=== PATIENT | female | born 1985 | race African-American/Black ===

== ENCOUNTER 2018-06-17 20:44 | Emergency (ER) | payer MEDICAID ==
[~2018-06-17] VITALS: Ht 170.2 cm; Wt 86.2 kg
[2018-06-17 20:55] VITALS: BP 121/83
--- NOTE | 2018-06-17 21:11 | Emergency Room Report ---
History of Present Illness General Chief Complaint: Chest Pain Source: Patient Present Illness HPI Is a 32-year-old female with a history of HIV, schizophrenia/bipolar. She said her CD4 count is good and a viral load is low. Has been noncompliant with HIV medication. He presents with chief complaint of chest pain/cough. Onset for last 3 days. Subjective fever. Coughing is productive of greenish sputum. HEENT is diffuse. Worse with inspiration. Better with rest. No radiation. Pain is 7 out of 10. Call 911 and EMS gave her aspirin and nitroglycerin without much relief. Denies any other complaint. No radiation the pain. No diaphoresis. No short of breath. Similar symptom in the past. Allergies: Coded Allergies: No Known Allergies (Unverified , 06/17/18) Patient History Past Medical History: see triage record, old chart reviewed, psych hx, HIV Past Surgical History: none Pertinent Family History: none Social History: Denies: smoking Now: No Immunizations: other Reviewed Nursing Documentation: PMH: Agreed; PSxH: Agreed Review of Systems Eye: Denies: eye pain, blurred vision ENT: Denies: ear pain, nose congestion, throat swelling Respiratory: Reports: cough, shortness of breath, sputum Cardiovascular: Reports: chest pain; Denies: palpitations Gastrointestinal: Denies: abdominal pain, diarrhea, nausea, vomiting Musculoskeletal: Denies: back pain, joint pain Skin: Denies: rash Neurological: Denies: headache, numbness Endocrine: Denies: increased thirst, increased urine Hematologic/Lymphatic: Denies: easy bruising All Other Systems: negative except mentioned in HPI Physical Exam Vital Signs Date Time Temp Pulse Resp B/P (MAP) Pulse Ox O2 Delivery O2 Flow Rate FiO2 06/17/18 20:40 98.7 87 18 121/83 98 Room Air 98.8 vitals normal Sp02 EP Interpretation: reviewed, normal General Appearance: well appearing, no apparent distress, alert Head: normocephalic, atraumatic Eyes: bilateral eye PERRL, bilateral eye EOMI ENT: hearing grossly normal, normal pharynx Neck: full range of motion, supple, no meningismus Respiratory: chest non-tender, normal breath sounds, rhonchi Cardiovascular #1: regular rate, rhythm, no murmur Gastrointestinal: normal bowel sounds, non tender, no mass, no organomegaly, no bruit, non-distended Musculoskeletal: back normal, gait/station normal, normal range of motion Psychiatric: mood/affect normal Skin: warm/dry Medical Decision Making Diagnostic Impression: Primary Impression: Chest pain Qualified Codes: R07.9 - Chest pain, unspecified Additional Impression: Atypical pneumonia ER Course Patient presents with atypical, noncardiac chest pain. Because of her history of HIV immunosuppression, we'll put on antibiotics and she has atypical pneumonia. No evidence of ACS, PE, dissection to name a few. EKG Diagnostic Results Rate: normal Rhythm: NSR ST Segments: no acute changes Rhythm Strip Diag. Results Rhythm Strip Time: 21:10 Rate: 95 Rhythm: NSR, no PVC's, no ectopy Last Vital Signs Date Time Temp Pulse Resp B/P (MAP) Pulse Ox O2 Delivery O2 Flow Rate FiO2 06/17/18 20:40 98.7 87 18 121/83 98 Room Air 98.8 Status: improved Disposition: HOME, SELF-CARE Condition: Stable Scripts Azithromycin* (ZITHROMAX*) 250 Mg Tablet 250 MG ORAL DAILY, #6 TAB 0 Refills Take two tables once daily for 1 day, then one tablet once daily for 4 days. Prov: Shaan Ann MD 06/17/18 Ibuprofen* (MOTRIN*) 600 Mg Tablet 600 MG ORAL THREE TIMES A DAY, #30 TAB 0 Refills Prov: Shaan Ann MD 06/17/18 Additional Instructions: Follow-up with your doctor in 5-7 days for recheck. Return if symptom worsen. Shaan Ann MD Jun 17, 2018 21:11
[2018-06-17] MEDS ORDERED: IBUPROFEN600 MG ORAL (21:27)
[2018-06-17] MEDS ORDERED: ZITHROMAX250 MG ORAL (21:27)
--- NOTE | 2018-06-17 21:31 | Emergency Room Report ---
Physical Exam Vital Signs Date Time Temp Pulse Resp B/P (MAP) Pulse Ox O2 Delivery O2 Flow Rate FiO2 06/17/18 20:40 98.7 87 18 121/83 98 Room Air 98.8 Medical Decision Making Diagnostic Impression: Primary Impression: Chest pain Qualified Codes: R07.9 - Chest pain, unspecified Additional Impression: Atypical pneumonia Chest X-Ray Diagnostic Results Chest X-Ray Diagnostic Results : Chest X-Ray Ordered: Yes # of Views/Limited/Complete: 1 View Indication: Chest Pain EP Interpretation: Yes Interpretation: no effusion, no pneumothorax, no acute cardiopulmonary disease, other - Increased bilateral interstitial infiltrates Impression: Other - b/l interstitial infiltrates Electronically Signed by: Shaan Ann MD Last Vital Signs Date Time Temp Pulse Resp B/P (MAP) Pulse Ox O2 Delivery O2 Flow Rate FiO2 06/17/18 21:08 98.7 06/17/18 20:55 85 18 121/83 98 Room Air Status: improved Disposition: HOME, SELF-CARE Condition: Stable Scripts Azithromycin* (ZITHROMAX*) 250 Mg Tablet 250 MG ORAL DAILY, #6 TAB 0 Refills Take two tables once daily for 1 day, then one tablet once daily for 4 days. Prov: Shaan Ann MD 06/17/18 Ibuprofen* (MOTRIN*) 600 Mg Tablet 600 MG ORAL THREE TIMES A DAY, #30 TAB 0 Refills Prov: Shaan Ann MD 06/17/18 Patient Instructions: Community-Acquired Pneumonia, Adult, [id number] Additional Instructions: Follow-up with your doctor in 5-7 days for recheck. Return if symptom worsen. Shaan Ann MD Jun 17, 2018 21:31
[2018-06-17 21:34] VITALS: BP 109/64
--- NOTE | 2018-06-17 21:49 | Diagnostic Imaging Report ---
EXAM: XR Chest, 1 View CLINICAL HISTORY: CP TECHNIQUE: Frontal view of the chest. COMPARISON: No relevant prior studies available. FINDINGS: Lungs: Unremarkable. No consolidation. Pleural space: Unremarkable. No pneumothorax. Heart: Unremarkable. No cardiomegaly. Mediastinum: Unremarkable. Bones/joints: Unremarkable. IMPRESSION: No radiographic evidence of acute cardiopulmonary disease.
== END 2018-06-17 21:32 | disposition home or self-care (01) ==
LOC: EDBD 20:44 → EMR 21:15
DX: J18.9 Pneumonia, unspecified organism (principal)
CPT/HCPCS: 71045; 93005; 99283

== ENCOUNTER 2018-07-13 08:04 | Inpatient (IN) | payer MEDICAID ==
[~2018-07-13] VITALS: Ht 170.2 cm; Wt 104.3 kg
[2018-07-13] VITALS (7 sets, daily range): BP systolic 102–143; BP diastolic 53–93
[~2018-07-13 08:04] MED LIST: IBUPROFEN600 MG ORAL; ZITHROMAX250 MG ORAL
[2018-07-13] MEDS ORDERED: UNOBMED (08:14)
[2018-07-13] MEDS ORDERED: Albuterol ud Inhalation HHN ONE (08:30)
[2018-07-13] MEDS ORDERED: Ipratropium 0.02% Inh Soln 2.5ml UD HHN ONE (08:30)
[2018-07-13] MEDS ORDERED: Azithromycin 250mg tab PO ONE (08:30)
[2018-07-13] MEDS ORDERED: BENADRYL A12.5 MG/5 ORAL (08:32)
[2018-07-13] MEDS ORDERED: CELEXA20 MG ORAL (08:32)
[2018-07-13] MEDS ORDERED: ALBUTEROL2.5 MG/3 M INH (08:32)
[2018-07-13] MEDS ORDERED: LISINOPRIL20 MG ORAL (08:32)
[2018-07-13] MEDS ORDERED: QUETIAPINE FUM200 MG ORAL (08:32)
[2018-07-13] MEDS ORDERED: TYLENOL WITH C1 EACH ORAL (08:32)
[2018-07-13 08:48] LABS: BASOPHILS % (AUTO) 1.9 % (0.0-2.0); EOSINOPHILS % (AUTO) 3.6 % (0.0-3.0); HEMOGLOBIN 11.4 G/DL (12.0-16.0); LYMPHOCYTES % (AUTO) 43.2 % (20.0-45.0); MEAN CORPUSCULAR VOLUME 86 FL (80-99); MONOCYTES % (AUTO) 11.1 % (1.0-10.0); NEUTROPHILS % (AUTO) 40.2 % (45.0-75.0); PLATELET COUNT 298 K/UL (150-450); RED BLOOD COUNT 4.21 M/UL (4.20-5.40); RED CELL DISTRIBUTION WIDTH 15.1 % (11.6-14.8)
[2018-07-13 09:00] LABS: ANION GAP 2 mmol/L (5-15); BLOOD UREA NITROGEN 14 mg/dL (7-18); CALCIUM 8.6 MG/DL (8.5-10.1); CARBON DIOXIDE 32 MMOL/L (21-32); CHLORIDE 107 MMOL/L (98-107); CREATININE 1.1 MG/DL (0.55-1.30); SODIUM 141 MMOL/L (136-145)
[2018-07-13 09:11] LABS: ALANINE AMINOTRANSFERASE 23 U/L (12-78); ALBUMIN 2.7 G/DL (3.4-5.0); ALBUMIN/GLOBULIN RATIO 0.6 (1.0-2.7); ALKALINE PHOSPHATASE 86 U/L (46-116); ASPARTATE AMINO TRANSFERASE 19 U/L (15-37); BILIRUBIN,TOTAL 0.2 MG/DL (0.2-1.0); CREATINE KINASE 250 U/L (26-308)
--- NOTE | 2018-07-13 10:01 | Diagnostic Imaging Report ---
Indication: Shortness of breath Technique: One view of the chest Comparison: 06/17/2018 Findings: Body habitus limits evaluation. The lungs and pleural spaces are clear. The heart is borderline enlarged. No significant change Impression: No acute process Borderline cardiomegaly
[2018-07-13 11:23] LABS: APPEARANCE,URINE CLEAR; BILIRUBIN, URINE NEGATIVE (NEGATIVE); COLOR,URINE PALE YELLOW; GLUCOSE, URINE (UA) NEGATIVE (NEGATIVE); KETONES,URINE NEGATIVE (NEGATIVE); LEUKOCYTE ESTERASE ,URINE NEGATIVE (NEGATIVE); NITRITE,URINE NEGATIVE (NEGATIVE); PH,URINE 7 (4.5-8.0); PROTEIN,URINE 2+ (NEGATIVE); UROBILINOGEN,URINE NORMAL MG/DL (0.0-1.0)
--- NOTE | 2018-07-13 12:01 | Emergency Room Report ---
History of Present Illness General Chief Complaint: Dyspnea/Respdistress Source: Patient, EMS Present Illness HPI This patient complains of shortness of breath. She states that this has been going on for a few months. She states she's also had chest pain and left arm pain. She has had some cough. She states she primarily feels short of breath and has had pain in her chest. She denies nausea or vomiting. She denies abdominal pain. She has no other complaints. Allergies: Coded Allergies: No Known Allergies (Unverified , 06/17/18) Patient History Past Medical History: see triage record, HTN, asthma, HIV Social History: Denies: smoking, alcohol use, drug use Last Menstrual Period: UNK Reviewed Nursing Documentation: PMH: Agreed; PSxH: Agreed Nursing Documentation-PMH Past Medical History: No History, Except For Hx Hypertension: Yes Hx Asthma: Yes History Of Psychiatric Problem: Yes - DEPRESSION, BIPOLAR Review of Systems All Other Systems: negative except mentioned in HPI Physical Exam Vital Signs Date Time Temp Pulse Resp B/P (MAP) Pulse Ox O2 Delivery O2 Flow Rate FiO2 07/13/18 08:09 75 18 143/93 98 Room Air 07/13/18 08:40 21 07/13/18 08:40 97.6 Sp02 EP Interpretation: reviewed, normal General Appearance: no apparent distress, alert, GCS 15, non-toxic, obese Head: normocephalic, atraumatic Eyes: bilateral eye normal inspection, bilateral eye PERRL ENT: hearing grossly normal, normal pharynx, no angioedema, normal voice Neck: full range of motion, supple/symm/no masses Respiratory: chest non-tender, lungs clear, normal breath sounds, no respiratory distress, no retraction, no accessory muscle use, speaking full sentences Cardiovascular #1: regular rate, rhythm, no edema Gastrointestinal: normal bowel sounds, non tender, soft, non-distended, no guarding, no rebound Rectal: deferred Musculoskeletal: back normal, gait/station normal, normal range of motion, non- tender Neurologic: alert, oriented x3, responsive, motor strength/tone normal, sensory intact, speech normal Psychiatric: judgement/insight normal, memory normal, mood/affect normal, no suicidal/homicidal ideation Skin: normal color, no rash, warm/dry, well hydrated Medical Decision Making Diagnostic Impression: Primary Impression: Chest pain Additional Impressions: Asthma exacerbation Cardiomegaly Possible pericarditis ER Course This patient is complicated. She has a history of HIV. She has findings on EKG with diffuse ST segment elevations that are less than 2 boxes but possibly coming down from a pericarditis. Also, the patient's chest x-ray shows cardiomegaly. She does not have a history of heart disease. I felt that given this patient's chest pain, asthma exacerbation, findings on EKG that may be evidence of pericarditis and findings on chest x-ray consistent with cardiomegaly that this patient should be admitted for further evaluation by cardiology and internal medicine. Therefore, this patient is admitted for further evaluation and treatment. Laboratory Tests Test 07/13/18 08:35 07/13/18 11:15 White Blood Count 4.0 K/UL (4.8-10.8) L Red Blood Count 4.21 M/UL (4.20-5.40) Hemoglobin 11.4 G/DL (12.0-16.0) L Hematocrit 36.0 % (37.0-47.0) L Mean Corpuscular Volume 86 FL (80-99) Mean Corpuscular Hemoglobin 27.0 PG (27.0-31.0) Mean Corpuscular Hemoglobin Concent 31.6 G/DL (32.0-36.0) L Red Cell Distribution Width 15.1 % (11.6-14.8) H Platelet Count 298 K/UL (150-450) Mean Platelet Volume 5.4 FL (6.5-10.1) L Neutrophils (%) (Auto) 40.2 % (45.0-75.0) L Lymphocytes (%) (Auto) 43.2 % (20.0-45.0) Monocytes (%) (Auto) 11.1 % (1.0-10.0) H Eosinophils (%) (Auto) 3.6 % (0.0-3.0) H Basophils (%) (Auto) 1.9 % (0.0-2.0) Sodium Level 141 MMOL/L (136-145) Potassium Level 4.0 MMOL/L (3.5-5.1) Chloride Level 107 MMOL/L (98-107) Carbon Dioxide Level 32 MMOL/L (21-32) Anion Gap 2 mmol/L (5-15) L Blood Urea Nitrogen 14 mg/dL (7-18) Creatinine 1.1 MG/DL (0.55-1.30) Estimate Glomerular Filtration Rate > 60 mL/min (>60) Glucose Level 87 MG/DL (74-106) Calcium Level 8.6 MG/DL (8.5-10.1) Total Bilirubin 0.2 MG/DL (0.2-1.0) Aspartate Amino Transferase (AST) 19 U/L (15-37) Alanine Aminotransferase (ALT) 23 U/L (12-78) Alkaline Phosphatase 86 U/L (46-116) Total Creatine Kinase 250 U/L (26-308) Troponin I 0.000 ng/mL (0.000-0.056) Pro-B-Type Natriuretic Peptide 74 pg/mL (0-125) Total Protein 7.1 G/DL (6.4-8.2) Albumin 2.7 G/DL (3.4-5.0) L Globulin 4.4 g/dL Albumin/Globulin Ratio 0.6 (1.0-2.7) L Urine Color Pale yellow Urine Appearance Clear Urine pH 7 (4.5-8.0) Urine Specific [place] 1.010 (1.005-1.035) Urine Protein 2+ (NEGATIVE) H Urine Glucose (UA) Negative (NEGATIVE) Urine Ketones Negative (NEGATIVE) Urine Blood Negative (NEGATIVE) Urine Nitrite Negative (NEGATIVE) Urine Bilirubin Negative (NEGATIVE) Urine Urobilinogen Normal MG/DL (0.0-1.0) Urine Leukocyte Esterase Negative (NEGATIVE) Urine RBC 0 /HPF (0 - 2) Urine WBC 0-2 /HPF (0 - 2) Urine Squamous Epithelial Cells Occasional /LPF Urine Bacteria Occasional /HPF (NONE) EKG Diagnostic Results Rhythm: NSR ST Segments: other - Diffuse ST segment elevations <2 small boxes. Prolonged Qtc Rhythm Strip Diag. Results EP Interpretation: yes Rate: 80's Rhythm: NSR, no PVC's, no ectopy Chest X-Ray Diagnostic Results Chest X-Ray Diagnostic Results : Chest X-Ray Ordered: Yes # of Views/Limited/Complete: 1 View Indication: Chest Pain EP Interpretation: Yes Interpretation: no consolidation, no effusion, no pneumothorax, other - Cardiomegaly Impression: Other - See above. Last Vital Signs Date Time Temp Pulse Resp B/P (MAP) Pulse Ox O2 Delivery O2 Flow Rate FiO2 07/13/18 11:00 82 18 104/53 100 Room Air 07/13/18 09:52 97.6 21 Disposition: ADMITTED INPATIENT Condition: Serious Referrals: NOT CHOSEN IPA/,REFERRING (PCP) Mel Portillo DO Jul 13, 2018 12:01
[2018-07-13] MEDS ORDERED: Ketorolac 30mg Inj IV PRN (13:30)
[2018-07-13] MEDS ORDERED: Morphine Sulfate 2mg/ml Inj IVP PRN (13:30)
[2018-07-13] MEDS ORDERED: dilTIAZem HCl 25mg/5ml Inj IV PRN (13:30)
[2018-07-13] MEDS ORDERED: Miralax 17gm pkt ORAL PRN (13:30)
[2018-07-13] MEDS ORDERED: Enalaprilat 2.5mg/2ml Inj IV PRN (13:30)
[2018-07-13] MEDS ORDERED: Albuterol/Ipratropium 3ml neb HHN PRN (13:30)
[2018-07-13] MEDS ORDERED: Nitroglycerin Subl 0.4mg tab SL PRN (13:30)
[2018-07-13] MEDS ORDERED: Aspirin Baby 81mg ORAL SCH (15:00)
--- NOTE | 2018-07-13 18:04 | History & Physical ---
History and Physical History & Physicial Dictated for Int Med-Dr Epps no, [id number]. Gallo León MD Jul 13, 2018 18:04
--- NOTE | 2018-07-13 18:27 | Cardiology Progress Note ---
Assessment/Plan Assessment/Plan doubt cardiac pain trop in am if ngeg attempt stress echo in am as she seems to be goign to several different ers [id number] Objective Last 24 Hour Vital Signs Date Time Temp Pulse Resp B/P (MAP) Pulse Ox O2 Delivery O2 Flow Rate FiO2 07/13/18 16:00 98.0 80 20 117/65 (82) 92 07/13/18 16:00 96 07/13/18 15:45 125/76 07/13/18 14:00 Room Air 07/13/18 13:50 98.2 95 20 113/66 (82) 98 07/13/18 13:48 97.6 93 19 102/55 100 Room Air 21 91 07/13/18 13:47 91 07/13/18 13:25 91 19 102/55 100 Room Air 07/13/18 11:00 82 18 104/53 100 Room Air 07/13/18 09:52 97.6 93 22 122/65 100 Room Air 21 07/13/18 09:09 98 18 99 Room Air 21 07/13/18 09:06 89 18 Room Air 21 07/13/18 08:46 89 18 100 Room Air 07/13/18 08:45 21 07/13/18 08:40 97.6 98 18 143/93 98 Room Air 07/13/18 08:40 89 18 Room Air 21 07/13/18 08:09 75 18 143/93 98 Room Air Laboratory Tests Test 07/13/18 08:35 07/13/18 11:15 White Blood Count 4.0 K/UL (4.8-10.8) L Red Blood Count 4.21 M/UL (4.20-5.40) Hemoglobin 11.4 G/DL (12.0-16.0) L Hematocrit 36.0 % (37.0-47.0) L Mean Corpuscular Volume 86 FL (80-99) Mean Corpuscular Hemoglobin 27.0 PG (27.0-31.0) Mean Corpuscular Hemoglobin Concent 31.6 G/DL (32.0-36.0) L Red Cell Distribution Width 15.1 % (11.6-14.8) H Platelet Count 298 K/UL (150-450) Mean Platelet Volume 5.4 FL (6.5-10.1) L Neutrophils (%) (Auto) 40.2 % (45.0-75.0) L Lymphocytes (%) (Auto) 43.2 % (20.0-45.0) Monocytes (%) (Auto) 11.1 % (1.0-10.0) H Eosinophils (%) (Auto) 3.6 % (0.0-3.0) H Basophils (%) (Auto) 1.9 % (0.0-2.0) Sodium Level 141 MMOL/L (136-145) Potassium Level 4.0 MMOL/L (3.5-5.1) Chloride Level 107 MMOL/L (98-107) Carbon Dioxide Level 32 MMOL/L (21-32) Anion Gap 2 mmol/L (5-15) L Blood Urea Nitrogen 14 mg/dL (7-18) Creatinine 1.1 MG/DL (0.55-1.30) Estimat Glomerular Filtration Rate > 60 mL/min (>60) Glucose Level 87 MG/DL (74-106) Calcium Level 8.6 MG/DL (8.5-10.1) Total Bilirubin 0.2 MG/DL (0.2-1.0) Aspartate Amino Transf (AST/SGOT) 19 U/L (15-37) Alanine Aminotransferase (ALT/SGPT) 23 U/L (12-78) Alkaline Phosphatase 86 U/L (46-116) Total Creatine Kinase 250 U/L (26-308) Troponin I 0.000 ng/mL (0.000-0.056) Pro-B-Type Natriuretic Peptide 74 pg/mL (0-125) Total Protein 7.1 G/DL (6.4-8.2) Albumin 2.7 G/DL (3.4-5.0) L Globulin 4.4 g/dL Albumin/Globulin Ratio 0.6 (1.0-2.7) L Urine Color Pale yellow Urine Appearance Clear Urine pH 7 (4.5-8.0) Urine Specific [place] 1.010 (1.005-1.035) Urine Protein 2+ (NEGATIVE) H Urine Glucose (UA) Negative (NEGATIVE) Urine Ketones Negative (NEGATIVE) Urine Blood Negative (NEGATIVE) Urine Nitrite Negative (NEGATIVE) Urine Bilirubin Negative (NEGATIVE) Urine Urobilinogen Normal MG/DL (0.0-1.0) Urine Leukocyte Esterase Negative (NEGATIVE) Urine RBC 0 /HPF (0 - 2) Urine WBC 0-2 /HPF (0 - 2) Urine Squamous Epithelial Cells Occasional /LPF Urine Bacteria Occasional /HPF (NONE) Gold Darden MD Jul 13, 2018 18:27
[2018-07-13] MEDS: Heparin 5000 units/ml inj SUBQ SCH (20:54)
[2018-07-13] MEDS ORDERED: QUEtiapine 200mg tab ORAL SCH (21:00)
--- NOTE | 2018-07-13 21:15 | Consultation ---
DATE OF CONSULTATION: 07/13/2018 ADDENDUM ASSESSMENT AND PLAN: 1. Atypical chest pain. 2. Shortness of breath. 3. HIV history. 4. Obesity. PLAN: This patient was seen in cardiac consultation. The patient has no signs or symptoms of coronary syndrome. Her electrocardiogram is unremarkable. Her chest pain is very atypical. The echocardiogram was personally reviewed, really wall motion appears to be normal. No significant wall motion abnormalities noted. Her cardiac enzymes are negative. She should be discharged with followup as outpatient with her primary care physician. She has had this shortness of breath discomfort for some time now more than 3 to 4 weeks yet. First set of cardiac enzymes are negative and probably her second set will be actually negative as well. She should really be discharged home because of insurance reasons. I will proceed with a exercise stress test, just the treadmill and hopefully, she could go home afterwards. If she is not able to exercise on the treadmill then she may be able to just follow up as outpatient for further testing through her primary care doctor's office. Gold Darden M.D. DR: FREDERIC JOB#: [id number] CC:
--- NOTE | 2018-07-13 23:15 | Consultation ---
DATE OF CONSULTATION: 07/13/2018 NOTE: INCOMPLETE DICTATION CARDIOLOGY CONSULTATION CONSULTING PHYSICIAN: Gold Darden M.D. REFERRING PHYSICIAN: 1. Tico Epps M.D. 2. Omega Rosa M.D. REASON FOR REFERRAL: Chest pain and shortness of breath. HISTORY OF PRESENT ILLNESS: This is a 32-year-old female, who apparently presented to the emergency room here at [facility] because of shortness of breath. She seems it is just going on for a few months and states she has also had some pain and discomfort in her left side of her chest and this has been going on for several months. She has dyspnea on exertion. She has shortness of breath on breath. She has shortness of breath when she lies down. She has shortness of breath that wakes her up. She has shortness of breath when she stands up. She has dizziness when she stands up and she has occasional palpitations. PAST MEDICAL HISTORY: Positive for high blood pressure. Denies any diabetes. No high cholesterol. No heart attack. No cancer. No stroke. No hepatitis or tuberculosis. No asthma or emphysema. No ulcers. No kidney problems, liver problems, thyroid problems, anemia, or arthritis. She does have HIV. No history of blood clots or other medical problems. She is not allergic to any medications. SOCIAL HISTORY: She smokes. Does rarely drink alcoholic beverages, and she only used drugs once. REVIEW OF SYSTEMS: GASTROINTESTINAL: She has had nausea and diarrhea. GENITOURINARY: Denies. PULMONARY: Positive cough, not able to produce any sputum. CONSTITUTIONAL: Negative. NEUROLOGIC: Negative. PHYSICAL EXAMINATION: GENERAL: Shows to be a young female, in no respiratory distress. Lying flat LUNGS: Clear to auscultation and percussion. CARDIAC: S1 is normal. S2 is normal. Regular rate and rhythm. No heaves, thrills, or gallops noted. ABDOMEN: Soft and nontender. Positive bowel sounds. EXTREMITIES: There is no edema, clubbing, or cyanosis. NEUROLOGICAL: She is awake, alert, responsive, in no apparent distress. LABORATORY AND DIAGNOSTIC DATA: White count of 4, hemoglobin 11.4, and platelet count 298,000. Sodium is 141, potassium 4.0, chloride 107, bicarbonate 32, BUN 14, creatinine 1.1, glucose of 87, and calcium is 8.7. ProBNP is 74. Albumin is 2.7. Urinalysis is fairly unremarkable. She did have x-ray of her chest and this shows borderline cardiomegaly, otherwise no acute processes noted. Gold Darden M.D. DR: GUILLE JOB#: [id number] CC:
--- NOTE | 2018-07-13 23:45 | History and Physical Report ---
DATE OF ADMISSION: 07/13/2018 CHIEF COMPLAINT: The patient is a 32-year-old female who presents with chief complaint of chest pain. HISTORY OF PRESENT ILLNESS: It began two weeks prior to admission. The patient began to experience chest pain. The patient states the chest pain is constant. The patient states that it is left-sided. There is no radiation to the jaw or to the shoulder. The patient also complains of shortness of breath associated with chest pain. The patient was evaluated at [facility] Emergency Room on June 30, 2018. The patient was discharged home. The patient then presented to [facility] on July 13, 2018. The patient is admitted with chest pain to rule out acute coronary syndrome. REVIEW OF SYSTEMS: CONSTITUTIONAL: The patient denies weight loss or weight gain. The patient denies fevers or chills. HEENT: The patient denies ear or throat pain. The patient denies headache. CARDIOVASCULAR: The patient complains of chest pain as above. The patient has palpitations. CHEST: The patient denies wheeze or shortness of breath. ABDOMEN: The patient denies nausea, vomiting, diarrhea, or constipation. GENITOURINARY: The patient denies dysuria or increased frequency of urination. NEUROMUSCULAR: The patient denies seizures or generalized weakness. PAST MEDICAL HISTORY: Significant for, 1. HIV, diagnosed at age 11. 2. Hypertension. 3. Bipolar depression. 4. Paranoid schizophrenia. PAST SURGICAL HISTORY: Significant for section x2. CURRENT MEDICATIONS: 1. Prezista 800 mg p.o. daily. 2. Albuterol nebulized q.4 h. p.r.n. 3. Citalopram 20 mg p.o. daily. 4. Lisinopril 20 mg p.o. daily. 5. Seroquel 200 mg p.o. daily. ALLERGIES: No known drug allergies. SOCIAL HISTORY: The patient is and is apparently homeless. The patient denies tobacco use. The patient admits to rare alcohol use. PHYSICAL EXAMINATION: VITAL SIGNS: Temperature 97.6, respirations 19, pulse 91, and blood pressure 102/55. GENERAL: The patient is a well-developed and well-nourished slightly obese female, in no apparent distress. HEENT: Eyes, pupils are equal and responsive to light and accommodation. Extraocular movements are intact. NECK: Supple. No lymphadenopathy. CHEST: Lungs are clear to auscultation bilaterally without wheezes or rales. CARDIOVASCULAR: Regular rhythm and rate. S1 and S2 are normal without murmurs, rubs, or gallops. ABDOMEN: Soft, nontender, and nondistended. Positive bowel sounds. No evidence of hepatosplenomegaly. Currently, no rebound or guarding noted. EXTREMITIES: Negative for clubbing, cyanosis, or edema. RECTAL/GENITAL: Refused. NEUROLOGIC: Cranial nerves II through XII are grossly intact without focal deficits. Motor strength is 5/5 bilaterally. Deep tendon reflexes are 2+ plantar. LABORATORY AND DIAGNOSTIC DATA: WBC 4.0, hemoglobin 11.4, hematocrit 36.0, and platelets 298,000. Sodium 141, potassium 4.0, chloride 107, CO2 32, BUN 14, creatinine 1.1, and glucose 87. Troponin 0.0. Urinalysis showed 2+ protein, otherwise within normal limits. A chest x-ray revealed no acute disease with possible cardiomegaly. An EKG demonstrated normal sinus rhythm at approximately 85 beats per minute. There are no acute ST changes or Q-waves noted. ASSESSMENT: This is a 32-year-old female. 1. Chest pain. 2. Shortness of breath. 3. HIV. 4. Hypertension. 5. Bipolar depression. TREATMENT: 1. Chest pain. A Cardiology consultation has been obtained with Dr. Gold Darden. We will follow recommendation of Cardiology. Serial troponin levels will be performed. 2. Shortness of breath. This may be associated with chest pain as above. 3. HIV. Continue Prezista as above. An Infectious Disease consultation has been obtained with Dr. Brennan. 4. Hypertension. Continue lisinopril as above. 5. Bipolar depression. Continue Seroquel and citalopram as above. A Psychiatric consultation has been obtained with Dr. Castellon. Gallo León M.D. DR: EAN JOB#: [id number] CC:
[2018-07-14] VITALS: BP 122/70
[2018-07-14 04:00] VITALS: BP 134/68
[2018-07-14 06:39] LABS: BASOPHILS % (AUTO) 0.9 % (0.0-2.0); EOSINOPHILS % (AUTO) 3.6 % (0.0-3.0); HEMATOCRIT 32.7 % (37.0-47.0); HEMOGLOBIN 10.8 G/DL (12.0-16.0); LYMPHOCYTES % (AUTO) 31.7 % (20.0-45.0); MEAN CORPUSCULAR VOLUME 86 FL (80-99); MONOCYTES % (AUTO) 10.1 % (1.0-10.0); NEUTROPHILS % (AUTO) 53.8 % (45.0-75.0); PLATELET COUNT 289 K/UL (150-450); RED BLOOD COUNT 3.82 M/UL (4.20-5.40); RED CELL DISTRIBUTION WIDTH 14.9 % (11.6-14.8); WHITE BLOOD COUNT 3.7 K/UL (4.8-10.8)
[2018-07-14 07:03] LABS: INR 0.9 (0.9-1.1)
[2018-07-14 07:32] LABS: CHOLESTEROL 149 MG/DL (< 200); HDL CHOLESTEROL 59 MG/DL (40-60); TRIGLYCERIDES 61 MG/DL (30-150)
[2018-07-14 08:00] VITALS: BP 130/68
[2018-07-14] MEDS ORDERED: Aspirin Baby 81mg ORAL SCH (09:00)
[2018-07-14] MEDS ORDERED: Lisinopril 20mg tab ORAL SCH (09:00)
[2018-07-14] MEDS ORDERED: QUEtiapine 200mg tab ORAL SCH (09:00)
[2018-07-14] MEDS: Heparin 5000 units/ml inj SUBQ SCH (09:14)
--- NOTE | 2018-07-14 10:59 | Consultation ---
History of Present Illness General Date patient seen: Jul 14, 2018 Chief Complaint: Dyspnea/Respdistress Present Illness HPI 32 year old with psychiatric history, Asthma, homeless, presented to ER with CC of shortness of breath and vague chest pain. pt is admitted to telemetry for further work up. Allergies: Coded Allergies: No Known Allergies (Unverified , 06/17/18) Medication History Scheduled Azithromycin* (Zithromax*), 250 MG ORAL DAILY Citalopram Hydrobromide* (Celexa*), 20 MG ORAL DAILY, (Reported) Ibuprofen* (Motrin*), 600 MG ORAL THREE TIMES A DAY Lisinopril (Lisinopril*), 20 MG ORAL DAILY, (Reported) Quetiapine Fumarate* (Seroquel*), 200 MG ORAL DAILY, (Reported) Scheduled PRN Acetaminophen With Codeine 300MG/30MG (T#3)* (Tylenol With Codeine #3 Tablet*), 1 TAB ORAL Q4H PRN for For Pain, (Reported) Albuterol Sulfate* (Albuterol Sulfate Hhn*), 3 ML INH Q4H PRN for Shortness of Breath, (Reported) Diphenhydramine Hcl* (Benadryl Allergy*), 12.5 MG ORAL Q6H PRN for Itching, ( Reported) Miscellaneous Medications Unable to Obtain Medications (Unable To Obtain Meds), (Reported) Patient History Healthcare decision maker Resuscitation status Full Code Advanced Directive on File Past Medical/Surgical History Past Medical/Surgical History: (1) History of asthma (2) HIV (human immunodeficiency virus infection) Review of Systems All Other Systems: negative except mentioned in HPI Physical Exam General Appearance: WD/WN Lines, tubes and drains: peripheral HEENT: normocephalic, atraumatic Neck: non-tender, normal alignment Respiratory/Chest: chest wall non-tender Abdomen: normal bowel sounds, soft Genitourinary/Rectal: normal genital exam Last 24 Hour Vital Signs Date Time Temp Pulse Resp B/P (MAP) Pulse Ox O2 Delivery O2 Flow Rate FiO2 07/14/18 09:28 Room Air 07/14/18 09:15 130/68 07/14/18 08:00 98.3 88 19 130/68 (88) 99 07/14/18 07:35 75 16 Room Air 21 07/14/18 07:35 67 07/14/18 04:00 79 07/14/18 04:00 98.0 92 20 134/68 (90) 98 07/14/18 00:00 95 07/14/18 00:00 98.0 96 20 122/70 (87) 97 07/13/18 21:02 84 18 Room Air 21 07/13/18 21:00 Room Air 07/13/18 20:00 85 07/13/18 20:00 97.7 89 20 128/72 (90) 98 07/13/18 16:00 98.0 80 20 117/65 (82) 92 07/13/18 16:00 96 07/13/18 15:45 125/76 07/13/18 14:00 Room Air 07/13/18 13:50 98.2 95 20 113/66 (82) 98 07/13/18 13:48 97.6 93 19 102/55 100 Room Air 21 91 07/13/18 13:47 91 07/13/18 13:25 91 19 102/55 100 Room Air 07/13/18 11:00 82 18 104/53 100 Room Air Intake and Output 07/13/18 07/14/18 19:00 07:00 Intake Total 3200 ml Balance 3200 ml Intake Oral 1200 ml IV Total 2000 ml Other 0 ml # Voids 1 Laboratory Tests Test 07/13/18 11:15 07/13/18 18:30 07/14/18 06:20 Urine Color Pale yellow Urine Appearance Clear Urine pH 7 (4.5-8.0) Urine Specific [place] 1.010 (1.005-1.035) Urine Protein 2+ (NEGATIVE) H Urine Glucose (UA) Negative (NEGATIVE) Urine Ketones Negative (NEGATIVE) Urine Blood Negative (NEGATIVE) Urine Nitrite Negative (NEGATIVE) Urine Bilirubin Negative (NEGATIVE) Urine Urobilinogen Normal MG/DL (0.0-1.0) Urine Leukocyte Esterase Negative (NEGATIVE) Urine RBC 0 /HPF (0 - 2) Urine WBC 0-2 /HPF (0 - 2) Urine Squamous Epithelial Cells Occasional /LPF Urine Bacteria Occasional /HPF (NONE) White Blood Count Pending 3.7 K/UL (4.8-10.8) L Lymphocytes Pending Troponin I 0.010 ng/mL (0.000-0.056) Pending Percent CD3 Cells Pending Absolute CD3 Count Pending Percent CD4 Cells Pending Absolute CD4 Count Pending T-Lymphocyte CD4/CD8 Ratio Pending Percent CD8 Cells Pending Absolute CD8 Count Pending HIV-1 RNA (PCR) log10 Value Pending HIV-1 RNA Ultraquantitative (PCR) Pending Red Blood Count 3.82 M/UL (4.20-5.40) L Hemoglobin 10.8 G/DL (12.0-16.0) L Hematocrit 32.7 % (37.0-47.0) L Mean Corpuscular Volume 86 FL (80-99) Mean Corpuscular Hemoglobin 28.2 PG (27.0-31.0) Mean Corpuscular Hemoglobin Concent 33.0 G/DL (32.0-36.0) Red Cell Distribution Width 14.9 % (11.6-14.8) H Platelet Count 289 K/UL (150-450) Mean Platelet Volume 5.3 FL (6.5-10.1) L Neutrophils (%) (Auto) 53.8 % (45.0-75.0) Lymphocytes (%) (Auto) 31.7 % (20.0-45.0) Monocytes (%) (Auto) 10.1 % (1.0-10.0) H Eosinophils (%) (Auto) 3.6 % (0.0-3.0) H Basophils (%) (Auto) 0.9 % (0.0-2.0) Prothrombin Time 9.9 SEC (9.30-11.50) Prothromb Time International Ratio 0.9 (0.9-1.1) Activated Partial Thromboplast Time 24 SEC (23-33) C-Reactive Protein, Quantitative < 0.4 mg/dL (0.00-0.90) Triglycerides Level 61 MG/DL (30-150) Cholesterol Level 149 MG/DL (< 200) LDL Cholesterol 92 mg/dL (<100) HDL Cholesterol 59 MG/DL (40-60) Cholesterol/HDL Ratio 2.5 (3.3-4.4) L Thyroid Stimulating Hormone (TSH) 1.430 uiU/mL (0.358-3.740) Height (Feet): 5 Height (Inches): 7.00 Weight (Pounds): 230 Medications Current Medications Medications (Trade) Dose Ordered Sig/Martin Route PRN Reason Start Time Stop Time Status Last Admin Dose Admin Acetaminophen (Tylenol) 650 mg Q4H PRN ORAL FEVER (Temp > 100.5F) 07/13/18 13:30 08/12/18 13:29 Albuterol/ Ipratropium (Albuterol/ Ipratropium) 3 ml Q4H PRN HHN Shortness of Breath 07/13/18 13:30 07/18/18 13:29 Aspirin (ASA) 81 mg DAILY ORAL 07/14/18 09:00 08/13/18 08:59 07/14/18 09:14 Darunavir (Prezista) 800 mg DAILY ORAL 07/14/18 11:00 08/13/18 10:59 Diltiazem HCl (Cardizem) 10 mg Q1H PRN IV heart rate more than 120, 07/13/18 13:30 08/12/18 13:29 Enalaprilat (Vasotec) 2.5 mg Q6H PRN IV sbp more than 160 07/13/18 13:30 08/12/18 13:29 Heparin Sodium (Porcine) (Heparin 5000 units/ml) 5,000 units EVERY 12 HOURS SUBQ 07/13/18 21:00 08/12/18 20:59 07/14/18 09:14 Ketorolac Tromethamine (Toradol 30mg) 30 mg Q6H PRN IV moderate pain ( 4-6) 07/13/18 13:30 07/18/18 13:29 Lisinopril (Prinivil) 20 mg DAILY ORAL 07/14/18 09:00 08/13/18 08:59 07/14/18 09:15 Morphine Sulfate (Morphine Sulfate) 2 mg Q4H PRN IVP severe Pain (Pain Scale 7-10) 07/13/18 13:30 07/20/18 13:29 Nitroglycerin (Ntg) 0.4 mg Q5M PRN SL Prn Chest Pain 07/13/18 13:30 08/12/18 13:29 07/13/18 15:45 Ondansetron HCl (Zofran) 4 mg Q6H PRN IVP Nausea & Vomiting 07/13/18 13:30 08/12/18 13:29 Polyethylene Glycol (Miralax) 17 gm DAILYPRN PRN ORAL Constipation 07/13/18 13:30 08/12/18 13:29 Quetiapine Fumarate (SEROquel) 200 mg BEDTIME ORAL 07/13/18 21:00 08/12/18 20:59 07/13/18 20:50 Temazepam (Restoril) 15 mg HSPRN PRN ORAL Insomnia 07/13/18 13:30 07/20/18 13:29 Assessment/Plan Problem List: (1) ACS (acute coronary syndrome) ICD Codes: I24.9 - Acute ischemic heart disease, unspecified SNOMED: 336202929 (2) Cardiomegaly ICD Codes: I51.7 - Cardiomegaly SNOMED: 1498008 (3) HIV (human immunodeficiency virus infection) ICD Codes: B20 - Human immunodeficiency virus [HIV] disease SNOMED: 46763332 (4) Asthma exacerbation ICD Codes: J45.901 - Unspecified asthma with (acute) exacerbation SNOMED: 647695568 Assessment/Plan serial ekg respiratory treatment IV steroids, with rapid taper social services technician for homelessness absence Omega Rosa MD Jul 14, 2018 10:59
--- NOTE | 2018-07-14 11:19 | Consultation ---
History of Present Illness General Date patient seen: Jul 14, 2018 Chief Complaint: Dyspnea/Respdistress Present Illness HPI 32-year-old female who presents with chief complaint of chest pain the pt is delusional and has hx of schizoaffective d/o. the pt is not suicidal or homicidal Allergies: Coded Allergies: No Known Allergies (Unverified , 06/17/18) Medication History Scheduled Azithromycin* (Zithromax*), 250 MG ORAL DAILY Citalopram Hydrobromide* (Celexa*), 20 MG ORAL DAILY, (Reported) Ibuprofen* (Motrin*), 600 MG ORAL THREE TIMES A DAY Lisinopril (Lisinopril*), 20 MG ORAL DAILY, (Reported) Quetiapine Fumarate* (Seroquel*), 200 MG ORAL DAILY, (Reported) Scheduled PRN Acetaminophen With Codeine 300MG/30MG (T#3)* (Tylenol With Codeine #3 Tablet*), 1 TAB ORAL Q4H PRN for For Pain, (Reported) Albuterol Sulfate* (Albuterol Sulfate Hhn*), 3 ML INH Q4H PRN for Shortness of Breath, (Reported) Diphenhydramine Hcl* (Benadryl Allergy*), 12.5 MG ORAL Q6H PRN for Itching, ( Reported) Miscellaneous Medications Unable to Obtain Medications (Unable To Obtain Meds), (Reported) Patient History Limited by: medical condition History Provided By: Patient, Medical Record, PMD Healthcare decision maker Resuscitation status Full Code Advanced Directive on File Review of Systems Psychiatric: Reports: prior hx, hallucinations Physical Exam General Appearance: no apparent distress, alert Neurologic: oriented x 3, responsive, depressed affect Last 24 Hour Vital Signs Date Time Temp Pulse Resp B/P (MAP) Pulse Ox O2 Delivery O2 Flow Rate FiO2 07/14/18 09:28 Room Air 07/14/18 09:15 130/68 07/14/18 08:00 98.3 88 19 130/68 (88) 99 07/14/18 07:35 75 16 Room Air 21 07/14/18 07:35 67 07/14/18 04:00 79 07/14/18 04:00 98.0 92 20 134/68 (90) 98 07/14/18 00:00 95 07/14/18 00:00 98.0 96 20 122/70 (87) 97 07/13/18 21:02 84 18 Room Air 21 07/13/18 21:00 Room Air 07/13/18 20:00 85 07/13/18 20:00 97.7 89 20 128/72 (90) 98 07/13/18 16:00 98.0 80 20 117/65 (82) 92 07/13/18 16:00 96 07/13/18 15:45 125/76 07/13/18 14:00 Room Air 07/13/18 13:50 98.2 95 20 113/66 (82) 98 07/13/18 13:48 97.6 93 19 102/55 100 Room Air 21 91 07/13/18 13:47 91 07/13/18 13:25 91 19 102/55 100 Room Air Intake and Output 07/13/18 07/14/18 19:00 07:00 Intake Total 3200 ml Balance 3200 ml Intake Oral 1200 ml IV Total 2000 ml Other 0 ml # Voids 1 Laboratory Tests Test 07/13/18 18:30 07/14/18 06:20 White Blood Count Pending 3.7 K/UL (4.8-10.8) L Lymphocytes Pending Troponin I 0.010 ng/mL (0.000-0.056) Pending Percent CD3 Cells Pending Absolute CD3 Count Pending Percent CD4 Cells Pending Absolute CD4 Count Pending T-Lymphocyte CD4/CD8 Ratio Pending Percent CD8 Cells Pending Absolute CD8 Count Pending HIV-1 RNA (PCR) log10 Value Pending HIV-1 RNA Ultraquantitative (PCR) Pending Red Blood Count 3.82 M/UL (4.20-5.40) L Hemoglobin 10.8 G/DL (12.0-16.0) L Hematocrit 32.7 % (37.0-47.0) L Mean Corpuscular Volume 86 FL (80-99) Mean Corpuscular Hemoglobin 28.2 PG (27.0-31.0) Mean Corpuscular Hemoglobin Concent 33.0 G/DL (32.0-36.0) Red Cell Distribution Width 14.9 % (11.6-14.8) H Platelet Count 289 K/UL (150-450) Mean Platelet Volume 5.3 FL (6.5-10.1) L Neutrophils (%) (Auto) 53.8 % (45.0-75.0) Lymphocytes (%) (Auto) 31.7 % (20.0-45.0) Monocytes (%) (Auto) 10.1 % (1.0-10.0) H Eosinophils (%) (Auto) 3.6 % (0.0-3.0) H Basophils (%) (Auto) 0.9 % (0.0-2.0) Prothrombin Time 9.9 SEC (9.30-11.50) Prothromb Time International Ratio 0.9 (0.9-1.1) Activated Partial Thromboplast Time 24 SEC (23-33) C-Reactive Protein, Quantitative < 0.4 mg/dL (0.00-0.90) Triglycerides Level 61 MG/DL (30-150) Cholesterol Level 149 MG/DL (< 200) LDL Cholesterol 92 mg/dL (<100) HDL Cholesterol 59 MG/DL (40-60) Cholesterol/HDL Ratio 2.5 (3.3-4.4) L Thyroid Stimulating Hormone (TSH) 1.430 uiU/mL (0.358-3.740) Height (Feet): 5 Height (Inches): 7.00 Weight (Pounds): 230 Medications Current Medications Medications (Trade) Dose Ordered Sig/Martin Route PRN Reason Start Time Stop Time Status Last Admin Dose Admin Acetaminophen (Tylenol) 650 mg Q4H PRN ORAL FEVER (Temp > 100.5F) 07/13/18 13:30 08/12/18 13:29 Albuterol/ Ipratropium (Albuterol/ Ipratropium) 3 ml Q4H PRN HHN Shortness of Breath 07/13/18 13:30 07/18/18 13:29 Aspirin (ASA) 81 mg DAILY ORAL 07/14/18 09:00 08/13/18 08:59 07/14/18 09:14 Darunavir (Prezista) 800 mg DAILY ORAL 07/14/18 11:00 08/13/18 10:59 Diltiazem HCl (Cardizem) 10 mg Q1H PRN IV heart rate more than 120, 07/13/18 13:30 08/12/18 13:29 Enalaprilat (Vasotec) 2.5 mg Q6H PRN IV sbp more than 160 07/13/18 13:30 08/12/18 13:29 Heparin Sodium (Porcine) (Heparin 5000 units/ml) 5,000 units EVERY 12 HOURS SUBQ 07/13/18 21:00 08/12/18 20:59 07/14/18 09:14 Ketorolac Tromethamine (Toradol 30mg) 30 mg Q6H PRN IV moderate pain ( 4-6) 07/13/18 13:30 07/18/18 13:29 Lisinopril (Prinivil) 20 mg DAILY ORAL 07/14/18 09:00 08/13/18 08:59 07/14/18 09:15 Morphine Sulfate (Morphine Sulfate) 2 mg Q4H PRN IVP severe Pain (Pain Scale 7-10) 07/13/18 13:30 07/20/18 13:29 Nitroglycerin (Ntg) 0.4 mg Q5M PRN SL Prn Chest Pain 07/13/18 13:30 08/12/18 13:29 07/13/18 15:45 Ondansetron HCl (Zofran) 4 mg Q6H PRN IVP Nausea & Vomiting 07/13/18 13:30 08/12/18 13:29 Polyethylene Glycol (Miralax) 17 gm DAILYPRN PRN ORAL Constipation 07/13/18 13:30 08/12/18 13:29 Quetiapine Fumarate (SEROquel) 200 mg BEDTIME ORAL 07/13/18 21:00 08/12/18 20:59 07/13/18 20:50 Temazepam (Restoril) 15 mg HSPRN PRN ORAL Insomnia 07/13/18 13:30 07/20/18 13:29 Assessment/Plan Status: stable Assessment/Plan schizoaffective d/o anxiety risperdal 2mg qhs the pt was provided ro/Flor Parr MD Jul 14, 2018 11:19
[2018-07-14 12:00] VITALS: BP 132/72
--- NOTE | 2018-07-14 12:05 | Consultation ---
Consult Note Consult Note # [id number] Luis Alfredo Brennan MD Jul 14, 2018 12:05
--- NOTE | 2018-07-14 16:25 | Cardiology Report ---
APPROVED REPORT EXAM: Two-dimensional and M-mode echocardiogram with Doppler and color Doppler. INDICATION Left ventricular function M-Mode DIMENSIONS IVSd1.3 (0.7-1.1cm)Left Atrium (MM)4.2 (1.6-4.0cm) LVDd5.0 (3.5-5.6cm)Aortic Root3.3 (2.0-3.7cm) PWd1.2 (0.7-1.1cm)Aortic Cusp Exc.2.2 (1.5-2.0cm) LVDs3.0 (2.5-4.0cm) PWs1.7 cm Normal left ventricular chamber size, systolic function and wall motion. Left ventricular ejection fraction estimated to be 55 %. Mild left ventricular hypertrophy. No evidence of pericardial effusion. Mild right atrial enlargement. Right ventricular chamber size is at upper limits of normal. Left atrial size at upper limits of normal. Normal aortic valve structure with adequate cusp excursion. Mildly thickened mitral valve leaflets with normal excursion. Mild mitral annulus and aortic root calcification. Pulmonic valve not well visualized. Normal tricuspid valve structure. IVC dilated at 2.4 cm with physiological collapse. A color flow and spectral Doppler study was performed and revealed: No aortic insufficiency. Peak aortic valve gradient of 18 mmHg and a mean of 9 mmHg. Mild to moderate mitral regurgitation. Mitral diastolic velocities suggest mild left ventricular relaxation (Grade I). Mild tricuspid regurgitation. Tricuspid systolic velocities suggests peak right ventricular systolic pressure of 38 mmHg, consistent with mild pulmonary hypertension. No pulmonic regurgitation present.
--- NOTE | 2018-07-14 18:31 | Discharge Summary ---
Discharge Summary Hospital Course Date of Admission Jul 13, 2018 at 12:32 Date of Discharge Jul 14, 2018 at 15:49 Admitting Diagnosis Asthma exacerbation, Cardiomegaly/poss. pericardit HPI Janeth Adame is a 32 year old female who was admitted on Jul 13, 2018 at 12:32 for Asthma Exacerbation,Cardiomegaly Hospital Course Discharge Discharge Disposition Patient was discharged to Home (01) Tico Epps MD Jul 14, 2018 18:31
--- NOTE | 2018-07-14 21:15 | Consultation ---
DATE OF CONSULTATION: 07/14/2018 INFECTIOUS DISEASE CONSULTATION CONSULTING PHYSICIAN: Luis Alfredo Brennan M.D. REFERRING PHYSICIAN: Gallo León M.D. REASON FOR CONSULTATION: Evaluation of the patient for HIV and anti-retroviral treatment. HISTORY OF PRESENT ILLNESS: The patient is a 32-year-old female, overall a poor historian who was admitted to this medical center with chest pain. The patient is scheduled for stress test. The patient has history of HIV, on Prezista-based regimen, however, the patient does not know exact name of all of her medications. She does not know about her CD4 count, but according to her, her HIV viral load has been undetectable. Infectious Disease consultation has been requested for further evaluation of the patient. PAST MEDICAL HISTORY: Significant for: 1. HIV at the age of 11 (unknown CD4 count, undetectable viral load). 2. Hypertension. 3. Bipolar disorder. 4. Paranoid schizophrenia. PAST SURGICAL HISTORY: History of . ALLERGIES: No known drug allergies. SOCIAL HISTORY: Negative for smoking/is homeless. MEDICATIONS AT HOME: Prezista (unknown list of rest of her medications). PHYSICAL EXAMINATION: VITAL SIGNS: Temperature 98 degrees, pulse 86, respiratory rate 18, and blood pressure 132/72. HEENT: No pale conjunctivae. No icterus. CHEST: Clear. HEART: S1 and S2. ABDOMEN: Soft and nontender. EXTREMITIES: No cyanosis . NEUROLOGIC: Awake. LABORATORY AND DIAGNOSTIC DATA: White blood cells 2.7, hemoglobin 10.8, and platelets 289,000. UA unremarkable. BUN 14 and creatinine 1.1. ALT, AST, and alkaline phosphatase unremarkable. CD4 count is pending. HIV viral load pending. Chest x-ray - no acute process. ASSESSMENT: The patient is a 32-year-old female with: 1. Human immunodeficiency virus (unknown CD4 count, undetectable viral load). 2. Chest pain. PLAN: 1. The patient needs to be restarted on her home medications. We will ask the nurse to get in touch with either pharmacy or if the patient can bring her medications for verification. 2. Monitor CBC. 3. Monitor BMP. 4. We will follow CD4 count and viral load. 5. Cardiology followup. 6. The patient's cardiac workups negative (according to the nurse). Thank you for this consultation. I will follow the patient with you during this hospitalization. Luis Alfredo Brennan M.D. DR: LES JOB#: [id number] CC:
--- NOTE | 2018-07-14 21:15 | Discharge Summary ---
DATE OF ADMISSION: 07/13/2018 DATE OF DISCHARGE: 07/14/2018 HISTORY OF PRESENT ILLNESS: This is a 32-year-old female with past medical history significant for HIV, hypertension, bipolar, depression, paranoid schizophrenia who presented to the hospital complaining about shortness of breath and chest pain. Shortly after initial evaluation, the patient was admitted to the hospital with chest pain, shortness of breath. Throughout the hospital course, the patient was consulted with Dr. Rosa from Pulmonary Critical Care, Dr. Brennan from Infectious Disease, Dr. Castellon from Psychiatry and Dr. Gold Darden from Cardiology. The patient's status gradually improved and subsequently was discharged home today to be followed as outpatient. The patient was admitted to the hospital with chest pain, possible acute coronary syndrome. The patient's status improved and discharged home today to be followed as outpatient with primary doctor. FINAL DIAGNOSES: 1. Acute asthma exacerbation. 2. Hypertension. 3. Human immunodeficiency virus. 4. Cardiomyopathy. 5. Atypical chest pain. MEDICATION ON DISCHARGE: Continue discharge medication list. ACTIVITY: As tolerated. DIET: Cardiac diet. FOLLOWUP: The patient was advised to follow up with the primary doctor as outpatient within one week. Tico Epps M.D. DR: Josee JOB#: [id number] CC:
== END 2018-07-14 15:49 | disposition home or self-care (01) | DRG 141 ==
LOC: EDUNIT# 08:04 → EDBD 08:04 → EDSEX 08:04 → EMR 09:09 → 2E 12:32 → EDBEDREQ 13:08
DX: J45.901 Unspecified asthma with (acute) exacerbation (principal); B20 Human immunodeficiency virus [HIV] disease; I42.9 Cardiomyopathy, unspecified; I10 Essential (primary) hypertension; R07.89 Other chest pain; E66.9 Obesity, unspecified; Z59.0 Homelessness; F41.9 Anxiety disorder, unspecified; F31.9 Bipolar disorder, unspecified; F20.0 Paranoid schizophrenia
CPT/HCPCS: 36415; 71045; 80053; 80061; 81003; 82550; 83880; 84443; 84484; 85025; 85610; 85730; 86140; 86360; 87536; 93005; 93017; 93306; 94640; 94664; 96360; 99285

== ENCOUNTER 2018-08-26 17:50 | Emergency (ER) | payer MEDICAID ==
[~2018-08-26] VITALS: Ht 170.2 cm; Wt 106.6 kg
[~2018-08-26 17:50] MED LIST changes: +ALBUTEROL2.5 MG/3 M INH; +BENADRYL A12.5 MG/5 ORAL; +CELEXA20 MG ORAL; +LISINOPRIL20 MG ORAL; +QUETIAPINE FUM200 MG ORAL; +TYLENOL WITH C1 EACH ORAL; +UNOBMED
--- NOTE | 2018-08-26 18:05 | NUR ---
ED Nurse Note: Pt came in c/o lower abdominal stomach pain x4 days. reports nausea, vomiting.
--- NOTE | 2018-08-26 18:12 | Emergency Room Report ---
History of Present Illness General Chief Complaint: Abdominal Pain Source: Patient Present Illness HPI 32 YO Female presents to the ED c/o urinary frequency, constipation and crampy abdominal pain x 3 days. pt. denies n/v, fevers or chills. she denies . She denies hx of diarrhea, recent travel or contacts with similar symptoms. Reports frequently having issues with constipation. last BM was this am, pt. describes having to really strain. denies blood in the stool. Denies CP , Palpitations, LOC, AMS, dizziness, Changes in Vision, Sensation, paresthesias , or a sudden severe headache. pt. requests a general physical check up. Allergies: Coded Allergies: No Known Allergies (Unverified , 06/17/18) Patient History Past Medical History: see triage record Past Surgical History: none Pertinent Family History: none Last Menstrual Period: " Couple months ago" Now: No Reviewed Nursing Documentation: PMH: Agreed; PSxH: Agreed Nursing Documentation-PMH Past Medical History: No History, Except For Hx Cardiac Problems: Yes Hx Hypertension: Yes Hx Asthma: Yes Hx Cancer: No Hx Gastrointestinal Problems: No Hx Neurological Problems: No Review of Systems All Other Systems: negative except mentioned in HPI Physical Exam Vital Signs Date Time Temp Pulse Resp B/P (MAP) Pulse Ox O2 Delivery O2 Flow Rate FiO2 08/26/18 17:56 98.2 97 20 148/88 99 Room Air Sp02 EP Interpretation: reviewed, normal General Appearance: no apparent distress, alert, GCS 15, non-toxic Head: normocephalic, atraumatic Eyes: bilateral eye normal inspection, bilateral eye PERRL ENT: hearing grossly normal, normal voice Neck: full range of motion Respiratory: chest non-tender, lungs clear, normal breath sounds, speaking full sentences Cardiovascular #1: regular rate, rhythm Gastrointestinal: non tender, soft, non-distended, no guarding Rectal: deferred Genitourinary: normal inspection, no CVA tenderness Musculoskeletal: back normal, gait/station normal, normal range of motion, non- tender Neurologic: alert, oriented x3, responsive, motor strength/tone normal, sensory intact, speech normal, grossly normal Psychiatric: judgement/insight normal Skin: normal color, no rash, warm/dry, well hydrated Medical Decision Making PA Attestation Dr. mancini is my supervising Physician whom patient management has been discussed with. Behavioral: Schizophrenia, Bipolar Disorder Diagnostic Impression: Primary Impression: Abdominal pain Qualified Codes: R10.84 - Generalized abdominal pain Additional Impressions: Urinary frequency Constipation Qualified Codes: K59.00 - Constipation, unspecified ER Course 32 YO Female presents to the ED c/o urinary frequency, constipation and crampy abdominal pain x 3 days. pt. denies n/v, fevers or chills. she denies . She denies hx of diarrhea, recent travel or contacts with similar symptoms. Reports frequently having issues with constipation. last BM was this am, pt. describes having to really strain. denies blood in the stool. Denies CP , Palpitations, LOC, AMS, dizziness, Changes in Vision, Sensation, paresthesias , or a sudden severe headache. pt. requests a general physical check up. Ddx considered but are not limited to Diverticulitis, acute appy, diarrhea,UC, PUD, GE, pancreatitis, gallstone Vital signs: are WNL, pt. is afebrile H&PE are most consistent with abdominal pain without evidence of acute abdomen. ORDERS: UA: unremarkable -Urine Hcg: Negative -Accu Check: 187 ED INTERVENTIONS: -- Colace PO -Mylanta PO -I do not identify an emergent condition at this time. With current presentation , pt. is stable for close outpatient follow up and conservative treatment. D/ w pt. to return promptly to ED with worsening or new symptoms.- Pt. verbalizes' understanding and agreement with proposed treatment plan.proposed treatment plan. d/w pt. that I will rx her similar medication as she was given here. pt was happy and thankful and in agreement. --per nurse once d/c paper work given pt. became very upset and angry. DISCHARGE: At this time pt. is stable for d/c to home. Will provide printed patient care instructions, and any necessary prescriptions. Care plan and follow up instructions have been discussed with the patient prior to discharge. Labs Test 08/26/18 18:06 Urine Color Brown Urine Appearance Clear Urine pH 6 (4.5-8.0) Urine Specific [place] 1.015 (1.005-1.035) Urine Protein 2+ (NEGATIVE) Urine Glucose (UA) Negative (NEGATIVE) Urine Ketones Negative (NEGATIVE) Urine Blood Negative (NEGATIVE) Urine Nitrite Negative (NEGATIVE) Urine Bilirubin Negative (NEGATIVE) Urine Urobilinogen 8 MG/DL (0.0-1.0) Urine Leukocyte Esterase 1+ (NEGATIVE) Urine RBC 0-2 /HPF (0 - 2) Urine WBC 2-4 /HPF (0 - 2) Urine Squamous Epithelial Cells Few /LPF (NONE/OCC) Urine Bacteria Few /HPF (NONE) Urine HCG, Qualitative Negative (NEGATIVE) Last Vital Signs Date Time Temp Pulse Resp B/P (MAP) Pulse Ox O2 Delivery O2 Flow Rate FiO2 08/26/18 17:56 98.2 97 20 148/88 99 Room Air Disposition: HOME, SELF-CARE Condition: Stable Scripts Ranitidine Hcl* (ZANTAC*) 150 Mg Tablet 150 MG ORAL TWICE A DAY for 7 Days, #14 TAB Prov: Hilaria Lang 08/26/18 Docusate Sodium* (COLACE*) 100 Mg Capsule 100 MG ORAL TWICE A DAY, #30 CAP Prov: Hilaria Lang 08/26/18 Patient Instructions: Abdominal Pain, Adult Additional Instructions: Take medications as directed. Follow up with a Primary Care Provider in 3-5 days, even if your symptoms have resolved. --Please review list of primary care clinics, if you do not already have a primary care provider Return sooner to ED if new symptoms occur, or current symptoms become worse. - Please note that this Emergency Department Report was dictated using [employer] supervisor technology software, occasionally this can lead to erroneous entry secondary to interpretation by the dictation equipment. Hilaria Lang Aug 26, 2018 18:12
[2018-08-26] MEDS ORDERED: Docusate 100mg cap ORAL ONE (18:15)
[2018-08-26] MEDS ORDERED: Mylanta II UD 30ml ORAL ONE (18:15)
[2018-08-26 18:26] LABS: APPEARANCE,URINE CLEAR; BILIRUBIN, URINE NEGATIVE (NEGATIVE); COLOR,URINE BROWN; GLUCOSE, URINE (UA) NEGATIVE (NEGATIVE); KETONES,URINE NEGATIVE (NEGATIVE); LEUKOCYTE ESTERASE ,URINE 1+ (NEGATIVE); NITRITE,URINE NEGATIVE (NEGATIVE); PH,URINE 6 (4.5-8.0); PROTEIN,URINE 2+ (NEGATIVE); UROBILINOGEN,URINE 8 MG/DL (0.0-1.0)
[2018-08-26 18:31] VITALS: BP 148/88
[2018-08-26] MEDS ORDERED: ZANTAC150 MG ORAL (19:19)
[2018-08-26] MEDS ORDERED: COLACE100 MG ORAL (19:19)
--- NOTE | 2018-08-26 19:46 | NUR ---
HAND-OFF: Report given to Sandra Chavez RN.
[2018-08-26 20:00] VITALS: BP 148/88
--- NOTE | 2018-08-26 20:00 | NUR ---
ED Nurse Note: PA notified
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
--- NOTE | 2018-08-26 20:05 | NUR ---
ED Nurse Note: pt in ER lobby using inappropriate language and yelling req dischare paperwork, pt given paperwork via Security, pt advised to follow up with PCP. Unable to take vs due to pt refusing. pt refusing to sign discharge papework nor homeless paperwork.
[2018-08-27] MEDS ORDERED: PREZISTA800 MG ORAL ×2 (08:23→10:56)
[2018-08-27] MEDS ORDERED: CATAPRES0.1 MG ORAL (08:23)
[2018-08-27] MEDS ORDERED: NORVIR100 MG ORAL ×2 (08:23→10:56)
[2018-08-27] MEDS ORDERED: CHLORTHALIDONE25 MG ORAL (08:23)
[2018-08-27] MEDS ORDERED: FOLIC ACID1 MG ORAL (08:23)
[2018-08-27] MEDS ORDERED: PRENATAL 19 TA1 EAC1 PO ×2 (08:23→10:56)
[2018-08-27] MEDS ORDERED: TYLENOL325 MG ORAL (10:34)
[2018-08-27] MEDS ORDERED: PEPCID AC20 M2 PO (10:34)
[2018-08-27] MEDS ORDERED: SEROQUEL100 MG ORAL (10:56)
== END 2018-08-26 20:00 | disposition home or self-care (01) ==
LOC: EMR 18:24
DX: R10.84 Generalized abdominal pain (principal); K59.00 Constipation, unspecified; R35.0 Frequency of micturition; J45.909 Unspecified asthma, uncomplicated; F17.200 Nicotine dependence, unspecified, uncomplicated; I10 Essential (primary) hypertension
CPT/HCPCS: 81003; 81025; 82962; 99283

== ENCOUNTER 2018-08-27 07:23 | Emergency (ER) | payer MEDICAID ==
[~2018-08-27] VITALS: Ht 170.2 cm; Wt 117.5 kg
[~2018-08-27 07:23] MED LIST changes: +COLACE100 MG ORAL; +ZANTAC150 MG ORAL
--- NOTE | 2018-08-27 07:25 | NUR ---
ED Nurse Note: Patient AYANA RA#[id number]/o ABD pain x 3 days. Denies N/V/D.
[2018-08-27 07:35] VITALS: BP 144/93
--- NOTE | 2018-08-27 07:48 | Emergency Room Report ---
History of Present Illness General Chief Complaint: Abdominal Pain Source: Patient, Significant Other Present Illness HPI Patient presents with abdominal pain for 5 days. It's been worse for 3. She had some vomiting yesterday. She denies any vomiting any blood. She's been constipated not been able to move her bowels. She denies any dysuria. The pain is epigastric and upper abdomen. She denies any fevers or chills. The rates the pain at 10/10 burning and aching and pressure. It's not radiating. Eating food doesn't help it or worsen symptoms. A separate problem is that there's been difficulty filling her prescriptions. She's on antivirals for HIV, clonidine for high blood pressure and vitamins. In addition she takes Seroquel. She participates in outpatient psychiatric care. She did not take her Seroquel today and is somewhat agitated but denies SI or HI. Allergies: Coded Allergies: No Known Allergies (Unverified , 06/17/18) Patient History Past Medical History: see triage record Social History: Reports: smoking; Denies: alcohol use, drug use Social History Narrative homeless Last Menstrual Period: 05/2018 Now: No - Unknown : 2 Para: 2 Reviewed Nursing Documentation: PMH: Agreed; PSxH: Agreed Nursing Documentation-PMH Hx Cardiac Problems: No - HIV + Hx Hypertension: Yes Hx Asthma: Yes Hx Cancer: No Hx Gastrointestinal Problems: No - Anemia History Of Psychiatric Problem: Yes - Bipolar, PTSD, Depression Hx Neurological Problems: Yes Review of Systems All Other Systems: negative except mentioned in HPI Physical Exam Vital Signs Date Time Temp Pulse Resp B/P (MAP) Pulse Ox O2 Delivery O2 Flow Rate FiO2 08/27/18 07:15 97.7 94 15 144/93 98 Room Air Sp02 EP Interpretation: reviewed, normal General Appearance: well appearing, no apparent distress, GCS 15 Head: normocephalic, atraumatic Eyes: bilateral eye normal inspection, bilateral eye PERRL ENT: dry mucus membranes Neck: supple Respiratory: lungs clear, normal breath sounds Cardiovascular #1: regular rate, rhythm Cardiovascular #2: 2+ radial (R) Gastrointestinal: normal inspection, normal bowel sounds, no mass, non- distended, no guarding, no rebound, tenderness - Epigastric, overweight Genitourinary: no CVA tenderness Musculoskeletal: back normal, gait/station normal, normal range of motion Neurologic: alert, oriented x3, grossly normal Psychiatric: other - Hyperdynamic Skin: normal inspection, warm/dry Medical Decision Making Diagnostic Impression: Primary Impression: Abdominal pain Qualified Codes: R10.13 - Epigastric pain Additional Impressions: Non-compliance Dehydration ER Course Patient presents with abdominal pain for several days. Differential includes gastritis, GERD, constipation, pancreatitis, gallbladder disease amongst others. Evaluation will be with labs. The patient appears dehydrated and will be treated with IV hydration, Pepcid and Zofran. Patient agitated here. Seroquel and Ativan ordered as unable to proceed with work up. Allowing IV and labs. Labs with low WBC, slightly low K, slightly elevated CK. Patient sleeping and states pain improved. Discussed need to have help with filling medications. Patient stable for outpatient observation and treatment. Laboratory Tests Test 08/27/18 07:30 08/27/18 09:00 Urine Color Yellow Urine Appearance Clear Urine pH 5 (4.5-8.0) Urine Specific [place] 1.015 (1.005-1.035) Urine Protein 2+ (NEGATIVE) H Urine Glucose (UA) Negative (NEGATIVE) Urine Ketones 1+ (NEGATIVE) H Urine Blood Negative (NEGATIVE) Urine Nitrite Negative (NEGATIVE) Urine Bilirubin Negative (NEGATIVE) Urine Urobilinogen 4 MG/DL (0.0-1.0) H Urine Leukocyte Esterase 2+ (NEGATIVE) H Urine RBC 0-2 /HPF (0 - 2) Urine WBC 2-4 /HPF (0 - 2) Urine Squamous Epithelial Cells Few /LPF (NONE/OCC) Urine Bacteria Few /HPF (NONE) Urine Opiates Screen Negative (NEGATIVE) Urine Barbiturates Screen Negative (NEGATIVE) Phencyclidine (PCP) Screen Negative (NEGATIVE) Urine Amphetamines Screen Negative (NEGATIVE) Urine Benzodiazepines Screen Negative (NEGATIVE) Urine Cocaine Screen Negative (NEGATIVE) Urine Marijuana (THC) Screen Positive (NEGATIVE) H White Blood Count 2.9 K/UL (4.8-10.8) L Red Blood Count 4.52 M/UL (4.20-5.40) Hemoglobin 12.6 G/DL (12.0-16.0) Hematocrit 38.9 % (37.0-47.0) Mean Corpuscular Volume 86 FL (80-99) Mean Corpuscular Hemoglobin 27.8 PG (27.0-31.0) Mean Corpuscular Hemoglobin Concent 32.3 G/DL (32.0-36.0) Red Cell Distribution Width 14.1 % (11.6-14.8) Platelet Count 210 K/UL (150-450) Mean Platelet Volume 6.2 FL (6.5-10.1) L Neutrophils (%) (Auto) % (45.0-75.0) Lymphocytes (%) (Auto) % (20.0-45.0) Monocytes (%) (Auto) % (1.0-10.0) Eosinophils (%) (Auto) % (0.0-3.0) Basophils (%) (Auto) % (0.0-2.0) Differential Total Cells Counted 100 Neutrophils % (Manual) 53 % (45-75) Lymphocytes % (Manual) 36 % (20-45) Monocytes % (Manual) 9 % (1-10) Eosinophils % (Manual) 2 % (0-3) Basophils % (Manual) 0 % (0-2) Band Neutrophils 0 % (0-8) Platelet Estimate Adequate Platelet Morphology Normal Anisocytosis 1+ Sodium Level 138 MMOL/L (136-145) Potassium Level 3.4 MMOL/L (3.5-5.1) L Chloride Level 103 MMOL/L (98-107) Carbon Dioxide Level 28 MMOL/L (21-32) Anion Gap 7 mmol/L (5-15) Blood Urea Nitrogen 10 mg/dL (7-18) Creatinine 1.2 MG/DL (0.55-1.30) Estimate Glomerular Filtration Rate > 60 mL/min (>60) Glucose Level 93 MG/DL (74-106) Calcium Level 9.2 MG/DL (8.5-10.1) Total Bilirubin 0.4 MG/DL (0.2-1.0) Aspartate Amino Transferase (AST) 25 U/L (15-37) Alanine Aminotransferase (ALT) 41 U/L (12-78) Alkaline Phosphatase 80 U/L (46-116) Total Creatine Kinase 352 U/L (26-308) H Total Protein 7.3 G/DL (6.4-8.2) Albumin 3.3 G/DL (3.4-5.0) L Globulin 4.0 g/dL Albumin/Globulin Ratio 0.8 (1.0-2.7) L Lipase 103 U/L (73-393) Last Vital Signs Date Time Temp Pulse Resp B/P (MAP) Pulse Ox O2 Delivery O2 Flow Rate FiO2 08/27/18 11:16 98.0 72 128/81 98 Room Air 08/27/18 07:35 15 Status: improved Disposition: HOME, SELF-CARE Condition: Improved Scripts Darunavir Ethanolate (PREZISTA) 800 Mg Tablet 800 MG ORAL DAILY, #20 TAB Prov: Darrel Darnell MD 08/27/18 Ritonavir* (NORVIR*) 100 Mg Capsule 100 MG ORAL DAILY, #20 CAP Prov: Darrel Darnell MD 08/27/18 Fzd317/Iron Fumarate/Fa/Dss ( 19 TABLET) 1 Each Tablet 1 EACH PO DAILY, #30 TAB Prov: Darrel Darnell MD 08/27/18 Quetiapine Fumarate* (SEROQUEL*) 100 Mg Tablet 100 MG ORAL TWICE A DAY, #30 TAB take 100 mg in the morning and 200 mg at night Prov: Darrel Darnell MD 08/27/18 Famotidine (PEPCID AC) 20 Mg Tablet 20 MG PO DAILY, #20 TAB Prov: Darrel Darnell MD 08/27/18 Acetaminophen (Tylenol) 325 Mg Tablet 650 MG ORAL Q6H PRN for Prn Pain/Headache/Temp > 101, #20 TAB 0 Refills Prov: Darrel Darnell MD 08/27/18 Darrel Darnell MD Aug 27, 2018 07:48
--- NOTE | 2018-08-27 07:48 | NUR ---
ED Nurse Note: attempted to insert IV on pt per dr order. pt began to yell and pulled IV out. charge nurse and dr. mchugh aware.
[2018-08-27] MEDS ORDERED: LORazepam 1mg tab ORAL ONE (08:00)
--- NOTE | 2018-08-27 08:07 | NUR ---
ED Nurse Note: per dr. mchugh pt was given seroquel and ativan PO. will continue to monitor pt and await for further orders.
[2018-08-27 08:14] LABS: APPEARANCE,URINE CLEAR; BILIRUBIN, URINE NEGATIVE (NEGATIVE); GLUCOSE, URINE (UA) NEGATIVE (NEGATIVE); KETONES,URINE 1+ (NEGATIVE); LEUKOCYTE ESTERASE ,URINE 2+ (NEGATIVE); NITRITE,URINE NEGATIVE (NEGATIVE); PH,URINE 5 (4.5-8.0); PROTEIN,URINE 2+ (NEGATIVE); UROBILINOGEN,URINE 4 MG/DL (0.0-1.0)
[2018-08-27 08:17] LABS: COLOR,URINE YELLOW
[2018-08-27] MEDS ORDERED: PREZISTA800 MG ORAL ×2 (08:23→10:56)
[2018-08-27] MEDS ORDERED: PRENATAL 19 TA1 EAC1 PO ×2 (08:23→10:56)
[2018-08-27] MEDS ORDERED: CATAPRES0.1 MG ORAL (08:23)
[2018-08-27] MEDS ORDERED: CHLORTHALIDONE25 MG ORAL (08:23)
[2018-08-27] MEDS ORDERED: FOLIC ACID1 MG ORAL (08:23)
[2018-08-27] MEDS ORDERED: NORVIR100 MG ORAL ×2 (08:23→10:56)
--- NOTE | 2018-08-27 09:03 | NUR ---
ED Nurse Note: pt is calm and cooperative charge nurse inserted IV. medication administered as ordered. will continue monitor
[2018-08-27 09:24] LABS: HEMATOCRIT 38.9 % (37.0-47.0); HEMOGLOBIN 12.6 G/DL (12.0-16.0); MEAN CORPUSCULAR VOLUME 86 FL (80-99); PLATELET COUNT 210 K/UL (150-450); RED BLOOD COUNT 4.52 M/UL (4.20-5.40); RED CELL DISTRIBUTION WIDTH 14.1 % (11.6-14.8); WHITE BLOOD COUNT 2.9 K/UL (4.8-10.8)
[2018-08-27 09:33] LABS: ANION GAP 7 mmol/L (5-15); BLOOD UREA NITROGEN 10 mg/dL (7-18); CALCIUM 9.2 MG/DL (8.5-10.1); CARBON DIOXIDE 28 MMOL/L (21-32); CHLORIDE 103 MMOL/L (98-107); CREATININE 1.2 MG/DL (0.55-1.30); POTASSIUM 3.4 MMOL/L (3.5-5.1); SODIUM 138 MMOL/L (136-145)
[2018-08-27 09:37] LABS: ALANINE AMINOTRANSFERASE 41 U/L (12-78); ALBUMIN 3.3 G/DL (3.4-5.0); ALBUMIN/GLOBULIN RATIO 0.8 (1.0-2.7); ALKALINE PHOSPHATASE 80 U/L (46-116); ASPARTATE AMINO TRANSFERASE 25 U/L (15-37); BILIRUBIN,TOTAL 0.4 MG/DL (0.2-1.0); CREATINE KINASE 352 U/L (26-308)
--- NOTE | 2018-08-27 10:21 | NUR ---
ED Nurse Note: reassessed pt, she is calm, resting in bed with eyes closed. NS bolus completed.
[2018-08-27] MEDS ORDERED: PEPCID AC20 M2 PO (10:34)
[2018-08-27] MEDS ORDERED: TYLENOL325 MG ORAL (10:34)
[2018-08-27] MEDS ORDERED: SEROQUEL100 MG ORAL (10:56)
--- NOTE | 2018-08-27 11:13 | NUR ---
ED Nurse Note: pt dc per ED order, dc and prescription education provided. pt verbalized underestanding, Iv site discontinued, vss, pt left with all belongings, pt instructed to follow with pmd if symptoms reoccur. md stressed to follow up with social science research assistant
[2018-08-27 11:16] VITALS: BP 128/81
== END 2018-08-27 11:13 | disposition home or self-care (01) ==
LOC: EDBD 07:23 → EMR 08:21
DX: R10.13 Epigastric pain (principal); I10 Essential (primary) hypertension; J45.909 Unspecified asthma, uncomplicated; F31.9 Bipolar disorder, unspecified; Z91.19 Patient's noncompliance with other medical treatment and regimen; E86.0 Dehydration
CPT/HCPCS: 36415; 80053; 80307; 81003; 82550; 83690; 85007; 85025; 96361; 96374; 96375; 99284; J2405; S0028

== ENCOUNTER 2018-09-18 10:33 | Emergency (ER) | payer MEDICAID ==
[~2018-09-18] VITALS: Ht 170.2 cm; Wt 113.4 kg
[~2018-09-18 10:33] MED LIST changes: +CATAPRES0.1 MG ORAL; +CHLORTHALIDONE25 MG ORAL; +FOLIC ACID1 MG ORAL; +NORVIR100 MG ORAL; +PEPCID AC20 M2 PO; +PRENATAL 19 TA1 EAC1 PO; +PREZISTA800 MG ORAL; +SEROQUEL100 MG ORAL; +TYLENOL325 MG ORAL
[2018-09-18] MEDS ORDERED: descovy (10:37)
[2018-09-18 10:38] VITALS: BP 147/98
--- NOTE | 2018-09-18 11:04 | Emergency Room Report ---
History of Present Illness General Chief Complaint: Constipation Source: Patient Present Illness HPI Patient presents with reports that she has had increased urination Initially it was reported that patient had constipation however she reports as she having more loose stools than usual Denies any chest pain or shortness of breath denies any vomiting denies any fevers or chills she reports that since August being started on New medications she has not felt the same and feels more weak Denies any fevers or chills denies any neck pain Patient also reports history of bipolar and schizophrenia reports taking Celexa and Seroquel denies any homicidal or suicidal thoughts Allergies: Coded Allergies: No Known Allergies (Unverified , 06/17/18) Patient History Past Medical History: see triage record Pertinent Family History: none Reviewed Nursing Documentation: PMH: Agreed; PSxH: Agreed Nursing Documentation-PMH Past Medical History: No History, Except For Hx Cardiac Problems: No - HIV + Hx Hypertension: Yes Hx Asthma: Yes Hx Cancer: No Hx Gastrointestinal Problems: No - Anemia History Of Psychiatric Problem: Yes - bipolar Hx Neurological Problems: Yes Review of Systems All Other Systems: negative except mentioned in HPI Physical Exam Vital Signs Date Time Temp Pulse Resp B/P (MAP) Pulse Ox O2 Delivery O2 Flow Rate FiO2 09/18/18 10:22 98.1 72 18 147/98 98 Room Air Sp02 EP Interpretation: reviewed, normal General Appearance: well appearing, no apparent distress Head: normocephalic, atraumatic Eyes: bilateral eye PERRL, bilateral eye EOMI ENT: hearing grossly normal, normal pharynx, TMs + canals normal, uvula midline Neck: full range of motion, supple, no meningismus, no bony tend Respiratory: lungs clear, normal breath sounds, no rhonchi, no respiratory distress, no retraction, no accessory muscle use Cardiovascular #1: normal peripheral pulses, regular rate, rhythm, no edema, no gallop, no JVD, no murmur Gastrointestinal: normal bowel sounds, non tender, soft, no mass, no organomegaly, non-distended, no guarding, no hernia, no pulsatile mass, no rebound Genitourinary: no CVA tenderness Musculoskeletal: normal inspection Neurologic: oriented x3, responsive, private duty lpn III-XII nml as tested, motor strength/ tone normal, sensory intact Psychiatric: other - Appeared to be initially somewhat anxious, and upset, however has become more appropriate again denies any psychiatric complaints such as homicidal or suicidal thoughts Skin: no rash, warm/dry, palpation normal, other Lymphatic: normal inspection, no adenopathy Medical Decision Making Diagnostic Impression: Primary Impression: HIV (human immunodeficiency virus infection) Additional Impression: Diarrhea ER Course Upon initial presentation and evaluation patient is placed into a room Patient had some complaints of urinary symptoms as well and therefore urine sample was obtained Patient had a list of medications which included vitamins While the patient's evaluation and workup was being performed I was notified that the patient had left and eloped the emergency room Labs Test 09/18/18 11:00 Urine Color Pale yellow Urine Appearance Clear Urine pH 6.5 (4.5-8.0) Urine Specific [place] 1.015 (1.005-1.035) Urine Protein 1+ (NEGATIVE) Urine Glucose (UA) Negative (NEGATIVE) Urine Ketones Negative (NEGATIVE) Urine Blood Negative (NEGATIVE) Urine Nitrite Negative (NEGATIVE) Urine Bilirubin Negative (NEGATIVE) Urine Urobilinogen Normal MG/DL (0.0-1.0) Urine Leukocyte Esterase 1+ (NEGATIVE) Urine RBC 0-2 /HPF (0 - 2) Urine WBC 0-2 /HPF (0 - 2) Urine Squamous Epithelial Cells Few /LPF (NONE/OCC) Urine Bacteria Occasional /HPF (NONE) Urine HCG, Qualitative Negative (NEGATIVE) Urine Opiates Screen Negative (NEGATIVE) Urine Barbiturates Screen Negative (NEGATIVE) Phencyclidine (PCP) Screen Negative (NEGATIVE) Urine Amphetamines Screen Negative (NEGATIVE) Urine Benzodiazepines Screen Negative (NEGATIVE) Urine Cocaine Screen Negative (NEGATIVE) Urine Marijuana (THC) Screen Negative (NEGATIVE) Last Vital Signs Date Time Temp Pulse Resp B/P (MAP) Pulse Ox O2 Delivery O2 Flow Rate FiO2 09/18/18 10:38 98.1 72 18 147/98 98 Room Air Status: other Disposition: ELOPED Condition: Unknown Jono Nina DO Sep 18, 2018 11:04
--- NOTE | 2018-09-18 11:04 | NUR ---
ED Nurse Note:urine sent to labs
[2018-09-18 11:10] LABS: APPEARANCE,URINE CLEAR; BILIRUBIN, URINE NEGATIVE (NEGATIVE); COLOR,URINE PALE YELLOW; GLUCOSE, URINE (UA) NEGATIVE (NEGATIVE); KETONES,URINE NEGATIVE (NEGATIVE); LEUKOCYTE ESTERASE ,URINE 1+ (NEGATIVE); NITRITE,URINE NEGATIVE (NEGATIVE); PH,URINE 6.5 (4.5-8.0); PROTEIN,URINE 1+ (NEGATIVE); UROBILINOGEN,URINE NORMAL MG/DL (0.0-1.0)
[2018-09-18 11:53] VITALS: BP 147/98
--- NOTE | 2018-09-18 11:56 | NUR ---
ED Nurse Note:pt. is A/Ox4 ambulatory with steady gait, she eloped from ER without notifying nurse and without signing homeless d/c forms
[2018-09-18] MEDS ORDERED: NKM (19:01)
[2018-09-18] MEDS ORDERED: ZYPREXA5 MG ORAL (21:37)
== END 2018-09-18 11:50 | disposition left against medical advice (07) ==
LOC: EDBD 10:33 → EMR 11:44
DX: R19.7 Diarrhea, unspecified (principal); B20 Human immunodeficiency virus [HIV] disease; I10 Essential (primary) hypertension; J45.909 Unspecified asthma, uncomplicated; F31.9 Bipolar disorder, unspecified
CPT/HCPCS: 80307; 81003; 81025; 99283

== ENCOUNTER 2018-09-18 18:52 | Emergency (ER) | payer MEDICAID ==
[~2018-09-18] VITALS: Ht 170.2 cm; Wt 117.5 kg
[~2018-09-18 18:52] MED LIST changes: +descovy
[2018-09-18] MEDS ORDERED: NKM (19:01)
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
[2018-09-18 19:06] VITALS: BP 134/84
--- NOTE | 2018-09-18 19:11 | NUR ---
ELOPEMENT: Patient eloped after being seen by ERMD. Verbally abusive, yelling to ERMD " I need a real doctor. You are a bitchass fake." Patient refused to stay in ED care. Explained risk and benefits x3; patient still refused. Patient removed ID band and walked out of ED.
[2018-09-18 19:19] VITALS: BP 134/84
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
[2018-09-18] MEDS ORDERED: ZYPREXA5 MG ORAL (21:37)
== END 2018-09-18 19:11 | disposition left against medical advice (07) ==
LOC: EMR 19:10
DX: Z04.89 Encounter for examination and observation for other specified reasons (principal); B20 Human immunodeficiency virus [HIV] disease; I10 Essential (primary) hypertension; J45.909 Unspecified asthma, uncomplicated
CPT/HCPCS: 99282

== ENCOUNTER 2018-09-18 20:35 | Emergency (ER) | payer MEDICAID ==
[~2018-09-18] VITALS: Ht 170.2 cm; Wt 117.9 kg
[~2018-09-18 20:35] MED LIST changes: +NKM
--- NOTE | 2018-09-18 21:12 | NUR ---
ED Nurse Note: Patient walk in c/o "being poisoned". Patient states she has been having symptoms for 1x month. Recent visit to ED 2 hours ago; eloped after seen by KARI.
[2018-09-18 21:14] VITALS: BP 145/92
[2018-09-18] MEDS ORDERED: ZYPREXA5 MG ORAL (21:37)
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
[2018-09-18 21:50] VITALS: BP 145/92
--- NOTE | 2018-09-18 21:50 | NUR ---
ED Nurse Note: Patient cleared for discharge per ERMD. AO4. VSS. Verbally abusive and combative. Patient given prescriptions and discharge instructions; verbalized understanding and refused to sign discharge papers. ID band removed. Patient ambulated out with all personal belongings with steady gait.
== END 2018-09-18 21:50 | disposition home or self-care (01) ==
LOC: EMR 21:14
DX: F22 Delusional disorders (principal); I10 Essential (primary) hypertension; J45.909 Unspecified asthma, uncomplicated; B20 Human immunodeficiency virus [HIV] disease; F31.9 Bipolar disorder, unspecified; F20.9 Schizophrenia, unspecified
CPT/HCPCS: 99282